=== PATIENT | male | born 2000 | race Two or more races ===

== ENCOUNTER 2021-11-05 16:20 | Emergency (ER) | payer MEDICAID ==
[~2021-11-05] VITALS: Ht 182.9 cm; Wt 122.5 kg
[2021-11-05 16:49] VITALS: BP 133/81
[2021-11-05] MEDS ORDERED: CARI350T PO (19:40)
--- NOTE | 2021-11-05 19:56 | NUR ---
Patient discharged to home in stable condition. Written and verbal after care instructions given. Patient verbalizes understanding of instruction.
== END 2021-11-05 20:30 | disposition home or self-care (01) ==
LOC: ER 16:28
DX: R07.89 Other chest pain (principal)